=== PATIENT | female | born 1940 | race American Indian/Alaskan Native ===

== ENCOUNTER 2019-02-27 13:00 | Outpatient (CLI) | payer MEDICARE ==
--- NOTE | 2019-02-28 10:42 | Mammography Report ---
DIGITAL RIGHT DIAGNOSTIC MAMMOGRAM WITHOUT CAD, 02/27/2019 INDICATION: ATTEMPTED STEREO. Patient presented for a stereo biopsy of calcifications in the upper ou ter right breast. TECHNIQUE: Digital right mammographic imaging was performed. Magnification views were obtained. Imag es were also obtained on the stereotactic table. COMPARISON: 02/06/2019, 01/18/2019 and 05/15/2017 Breast Density: The breasts are almost entirely fatty. FINDINGS: The previously described upper outer pleomorphic calcifications in a linear distribution ap pear to be vascular with a tram track configuration. This is demonstrated on both conventional spot m agnification mammographic views and targeting images on the stereotactic table. Stereotactic biopsy was canceled. IMPRESSION: Probably benign vascular calcifications. Follow up recommendation: 6 month follow-up right mammogram with magnification views. BI-RADS Category 3: Probably Benign. Followup in 6 months. A "normal" or negative report should not discourage follow up or biopsy of a clinically significant f inding. A written summary of these findings will be mailed to the patient. The patient will be entered into a mammography reporting system which will generate a reminder letter for the patient's next appointmen t at the appropriate interval. According to the [employer], yearly mammograms are recommended starting at age 40 and continuing as long as a woman is in good health. Breast MRI is recommended for women with an terence roximately 20-25% or greater lifetime risk of breast cancer, including women with a strong family his tory of breast or ovarian cancer and women who have been treated for Hodgkin's disease. Signer Name: Rafat Somers MD Signed: 02/28/2019 10:37 AM Workstation Name: [id number]
== END 2019-02-27 13:01 | disposition home or self-care (01) ==
LOC: SPVWC 13:00
PROVIDERS: ATTEND Surgery
DX: R92.8 Other abnormal and inconclusive findings on diagnostic imaging of breast (principal)

== ENCOUNTER 2020-02-10 08:16 | Outpatient (CLI) | payer MEDICARE ==
--- NOTE | 2020-02-10 14:39 | Mammography Report ---
DIGITAL SCREENING MAMMOGRAM WITH CAD, 02/10/2020 CLINICAL INFORMATION / INDICATION: Routine screening mammography. TECHNIQUE: Digital bilateral 2D mammography was obtained in the craniocaudal and mediolateral obliqu e projections. This examination was interpreted with the benefit of Computer-Aided Detection analysis . COMPARISON: 08/01/2019, 02/27/2019, 02/06/2019, 01/18/2019 FINDINGS: Breast Density: There are scattered areas of fibroglandular density. No dominant mass, suspicious calcifications, or architectural distortion in either breast. Bilateral benign calcifications are unchanged. IMPRESSION: No mammographic evidence of malignancy. Follow up recommendation: Routine yearly BI-RADS Category 2: Benign. A "normal" or negative report should not discourage follow up or biopsy of a clinically significant f inding. A written summary of these findings will be mailed to the patient. The patient will be entered into a mammography reporting system which will generate a reminder letter for the patient's next appointmen t at the appropriate interval. The [employer] recommends yearly mammograms starting at age 40 and continuing as l veronica as a woman is in good health. Breast MRI is recommended for women with an approximate 20-25% or greater lifetime risk of breast cancer, including women with a strong family history of breast or ova dawna cancer or who have been treated for Hodgkin's disease. Signer Name: Lauro Dubon MD Signed: 02/10/2020 2:35 PM Workstation Name: [id number]
== END 2020-02-10 08:17 | disposition home or self-care (01) ==
LOC: SPVWC 08:16
PROVIDERS: ATTEND Surgery
DX: Z12.31 Encounter for screening mammogram for malignant neoplasm of breast (principal); N64.89 Other specified disorders of breast
CPT/HCPCS: 77063; 77067